=== PATIENT | female | born 1985 | race Caucasian/White ===

== ENCOUNTER 2020-09-02 16:39 | Emergency (ER) | payer OTHER ==
[~2020-09-02] VITALS: Ht 152.4 cm; Wt 70.3 kg
[2020-09-02 17:28] VITALS: BP 136/90; Ht 152.4 cm; Wt 70.3 kg
== END 2020-09-02 19:47 | disposition home or self-care (01) ==
LOC: ED 16:39
DX: R50.9 Fever, unspecified (principal); R05 Cough; E11.9 Type 2 diabetes mellitus without complications; Z88.2 Allergy status to sulfonamides
CPT/HCPCS: 99406; U0003